=== PATIENT | female | born 1930 | race Caucasian/White ===

== ENCOUNTER 2017-03-28 15:00 | Inpatient (IN) | payer MEDICARE, BC ==
[~2017-03-28] VITALS: Ht 154.9 cm; Wt 46.5 kg
--- NOTE | ~2017-03-28 | DS ---
PATIENT'S NAME: STAR VAZQUEZ I [place] AGE: 86 Y [address] ROOM: [place] [address] LOCATION: GPCU ADMIT DATE: 03/28/2017 Discharge Summary DISCHARGE DATE: 03/31/2017 FAMILY PHYSICIAN: BHUPENDRA PACK MD ([facility]) ATTENDING PHYSICIAN: Dhiraj Perdomo [facility] COURSE: Mrs. Vazquez her a ground level fall at home. Two weeks prior to admission, had hip pain, was evaluated with CT scan and plain x-ray, that revealed no x-rays. Continued to have hip pain, presented to her local clinic after 2 weeks and x-ray demonstrated at that time a collapsed fracture of her right hip. She was transferred and admitted to [facility] for definitive treatment of her subcapital fracture of her right hip. After preoperative risk evaluation, she was taken to the operating room, right hemiarthroplasty was performed. In the postoperative period, she experienced moderate hypotension with systolics in the 50s and code blue protocol was performed despite no loss of pulse. She did have reversal of her hypotension with administration of Narcan and she did have some apnea during the code blue episode. She was transferred to PCU, started on dopamine for her hypotension and fluid support. She was typed and crossed and transfused 2 units packed red blood cells. She had some ST depression on leads V3, V4. All narcotics were withdrawn and her pain was managed for the remainder of the hospitalization with tramadol. Posttransfusion hemoglobin was 10.5. Postop day 2, hemoglobin drifted down to 8.7. Arrangements were made for her to be transferred to [facility] Bed. On postop day 3, she was transferred to the [place] [facility] with following instructions: Leave Mepilex dressing in place. May shower with that in place. Follow up with us in [place] in 6-12 days. Weight bear as tolerated. Continue prehospitalization medication regimen with the following additions: Lovenox 40 subcu q.24 hours with an end date of 04/08. Prescription was written for tramadol 50 mg p.o. q.6 hours p.r.n. pain, dispensed 40, no refills. Her comorbidities during her hospitalization included hypertension, gastroesophageal reflux disease, thyroid mass, and hypotension with apnea. BART CHOUDHARY FOR MD KAYCEE VERNON/elmer /[id number] d: 04/06/17 0202 t: 05/03/17 1058, DISCHARGE SUMMARY
--- NOTE | ~2017-03-28 | CON ---
PATIENT'S NAME: STAR VAZQUEZ I [facility] AGE: 86 Y [address] ROOM: [place] [address] [facility] ADMIT DATE: 03/28/2017 Consultation DISCHARGE DATE: FAMILY PHYSICIAN: PHYSICIAN, UNKNOWN ATTENDING PHYSICIAN: Dhiraj Perdomo REFERRING PHYSICIAN: Doug DUTTON ADDENDUM: IMPRESSION AND PLAN: In addition to the above impression and plan are, 1. Hyponatremia. We will merely hydrate her and observe her clinical response with normal saline. 2. Stop medications. Again, this was discussed with Dr. Dutton, who felt the patient was mild-to- moderate risk for a planned surgery due to the age, but no further workup was needed for anticipated surgery. She may proceed. ANNETTE MADRIGAL APRN, APRN FOR MD JERONIMO RO/elmer /[id number] d: t: 03/29/17 1004, CONSULTATION REPORT
--- NOTE | ~2017-03-28 | CON ---
PATIENT'S NAME: STAR VAZQUEZ I [facility] AGE: 86 Y [address] ROOM: [address] [place], [place] [address] LOCATION: G3N ADMIT DATE: 03/28/2017 Consultation DISCHARGE DATE: FAMILY PHYSICIAN: PHYSICIAN, UNKNOWN ATTENDING PHYSICIAN: Dhiraj Perdomo REFERRING PHYSICIAN: Doug DUTTON This is a consultation for Dr. Perdomo. REASON FOR CONSULTATION: Preoperative evaluation and medical management. CHIEF COMPLAINT: Right hip pain. HISTORY OF PRESENT ILLNESS: This is an 86-year-old female, who lives by herself at home. She is typically very independent and is using a four-wheeled walker and ambulating around her house. About a little over week ago on March 17, 2017, she suffered a fall in the toilet, that was ground level, resulting in right hip pain. She was taken to the emergency room where she was evaluated by the provider by x-ray and CT scan and did not show any fracture of the right hip. She also had a CT scan of her head and of her C-spine, which revealed no acute abnormalities there; however, was incidentally found a right thyroid mass, which recommendations were made for thyroid ultrasound and followup. She was sent home on Ultra and physical therapy. Over the course of the last week, she has progressive pain worsening to where she could hardly ambulate. She called her provider who upped her pain medicines and asked her to come back in for a visit today, in which a new pelvic x-ray revealed an impacted and overlapping right femoral neck fracture. Referrals were made to Orthopedics, and recommendations were made for surgical intervention and transferred to [facility]. We have asked to see the patient in regard to preoperative clearance and medical management. Currently, the patient is resting in bed, who shows some significant stress with spasming of her right hip with associated pain. She is alert and oriented x3. She does not complain of any lightheadedness or dizziness recent. 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 She does wear corrective vision for her right eye. She does have hearing aids that she wears all the time. She also has a top plate for her teeth, however, denies any sore throat or complications with her swallow. She denies any chest pains or palpitations or irregular heart rhythms. She does state that her doctor told her she has a heart murmur but has never had it worked up. She does have high blood pressure, which she tolerates her medicines without any complications. She denies any chronic lung disease. She has no shortness of PATIENT'S NAME: STAR VAZQUEZ I [facility] AGE: 86 Y [address] ROOM: [address] [address] LOCATION: [facility] ADMIT DATE: 03/28/2017 Consultation DISCHARGE DATE: FAMILY PHYSICIAN: PHYSICIAN, UNKNOWN ATTENDING PHYSICIAN: Dhiraj Perdomo breath or cough. She denies any nausea, vomiting, or diarrhea. She denies any melena. She denies any active urologic complaints. She has chronic urgency and sometimes incontinence. She denies any painfulness or burning upon urination currently. She does have a Higginbotham catheter in place. She does have complaints of the right groin into her hip area significant pain with spasms. She denies any numbness or tingling. She denies any recent weight loss or weight gain or hot or cold spells. REVIEW OF SYSTEMS: A 13-point review of systems was done and was deemed negative other than mentioned above in the HPI. ALLERGIES: NO KNOWN MEDICATION ALLERGIES. THE PATIENT STATES SHE HAS A HISTORY OF GLUTEN ALLERGY, RESPONSE UNKNOWN. HOME MEDICATIONS: 1. Tramadol 50 to 100 mg p.o. every 6 hours as needed for pain. 2. Lisinopril 20 mg p.o. every day. 3. Aspirin 81 mg p.o. every day. 4. Multivitamin 1 tablet p.o. every day with meals. 5. Acetaminophen 650 mg p.o. every 4 hours as needed for pain. 6. Maxitrol eye ointment one application ophthalmic every day as needed for eye irritation. PAST MEDICAL HISTORY: 1. Essential hypertension. 2. Reflux. 3. Questionable heart murmur. 4. Large right thyroid mass found by CT scan on 03/17 with recommendations for followup with thyroid ultrasound. PAST SURGICAL HISTORY: Hysterectomy. SOCIAL HISTORY: The patient lives alone at home independently. She denies any alcohol use. She is a nonsmoker. She denies any illicit drug use. She is retired. She has family that checks on her frequently that live nearby. PHYSICAL EXAMINATION: VITAL SIGNS: Reveal a temperature of 98.0 oral, pulse of 87, respiratory rate of 16, blood pressure 165/98, and SpO2 of 97% on room air. Her weight is 53.30 kg, her BMI is 22.2. GENERAL: This is an 86-year-old female, who looks and appears her PATIENT'S NAME: STAR VAZQUEZ I [facility] AGE: 86 Y [address] ROOM: [address] [address] LOCATION: [facility] ADMIT DATE: 03/28/2017 Consultation DISCHARGE DATE: FAMILY PHYSICIAN: PHYSICIAN, UNKNOWN ATTENDING PHYSICIAN: Dhiraj Perdomo stated age, who is grimacing with spasms in her right lower extremity. HEENT: Her head is normocephalic, atraumatic. Her eyes, EOMs intact. Nose is midline. Throat is non-red, no exudate. Dentition is good, top plate in place. NECK: Without any lymphadenopathy or thyromegaly. CHEST: Equal and symmetric expansion and is unlabored. Her respiratory rate is regular. Her lungs are clear throughout all luna without any wheeze. HEART: Regular rate and rhythm without any gallop. A silent systolic murmur grade 1 to 2 over 6 noted. No peripheral edema noted. ABDOMEN: Soft, nontender, nondistended. No organomegaly appreciated. Her right hip is externally rotated with point tenderness at the right pelvis. She has no clubbing or cyanosis in either extremities. NEUROLOGIC: Cranial nerves 2 through 12 intact, otherwise appears nonfocal. LABORATORY RESULTS: EKG shows normal sinus rhythm with what appears as right and possible left atrial enlargement. No acute ST changes noted. A CBC shows a white blood cell of 10.7, hemoglobin of 11.8, hematocrit of 34.7, platelet count 698. Chemistry panel shows a glucose of 102, BUN of 9, creatinine of 0.6, sodium 130, potassium 4.3, chloride 94, CO2 of 27, calcium 9.4, albumin 4.1, phosphorus 2.8, GFR greater than 60. INR is 0.92. A prealbumin level is 26. Urinalysis is pending. Chest x-ray shows no evidence of any acute cardiopulmonary disease. IMPRESSION AND PLAN: 1. Preoperative evaluation for a right femoral neck fracture. Her MET score is greater than 4 preoperatively. She has no acute process. The patient is at average risk for average procedure. Risks, benefits, and alternatives of the procedure to be discussed by the primary orthopedist and anesthesiologist. 2. Essential hypertension. To continue with her home medication lisinopril and observation of her blood pressures. 3. Right femoral neck fracture. To be managed by orthopedic primary attending, Dr. Perdomo. Plan for surgical intervention. Pain management as per ordered with intravenous morphine. We will give additional breakthrough Dilaudid for current active pain. We will carefully consider the addition of Valium for her spasms. 4. Gastroesophageal reflux disease without esophagitis. She is currently not on therapies, and we will continue close observation and placement of a proton pump inhibitor while plan for surgical intervention. 5. Incidental finding of a thyroid mass on CT scan. We would continue recommendations for followup as an outpatient. We will try to obtain most recent TSH level. She appears asymptomatic clinically. 6. Advanced age. The patient only is at high risk for postoperative PATIENT'S NAME: TAYLORSTAR QUINONES I [facility] AGE: 86 Y [address] ROOM: [place] [address] LOCATION: [facility] ADMIT DATE: 03/28/2017 Consultation DISCHARGE DATE: FAMILY PHYSICIAN: PHYSICIAN, UNKNOWN ATTENDING PHYSICIAN: Dhiraj Perdomo. Narcotics and medications should be narrowed accordingly. 7. Deep venous thrombosis prophylaxis. Pneumatic compression devices with holding of any anticoagulation in anticipation of surgery. The above line of management was discussed with the patient, who stated complete understanding. Further review with Dr. Dutton was completed. ANNETTE MADRIGAL APRN, FURNIT[employer] SAL[employer] CONSULTANT FOR MD JERONIMO RO/elmer /[id number] d: t: 03/28/17 2354, CONSULTATION REPORT
--- NOTE | ~2017-03-28 | HP ---
PATIENT'S NAME: [facility] AGE: 86 Y [address] ROOM: [place] [address] [facility] ADMIT DATE: 03/28/2017 History & Physical DISCHARGE DATE: 03/31/2017 FAMILY PHYSICIAN: BHUPENDRA PACK MD ([facility]) ATTENDING PHYSICIAN: Dhiraj Perdomo DATE OF SERVICE: CHIEF COMPLAINT AND HISTORY OF PRESENT ILLNESS: This is an 86-year-old female from [place]. She was previously living by herself at home and ambulatory with a walker. About a week ago, she fell and started complaining of hip pain. Radiographs and CT scan were negative for hip fracture. She presented today to the clinic in [place] with hip pain, and repeat radiographs showed displaced subcapital right femoral neck fracture. She was transferred to [facility] for further care and evaluation. ALLERGIES: NO KNOWN ALLERGIES. MEDICATIONS: 1. Tramadol. 2. Lisinopril. 3. Aspirin 81 mg. 4. Multivitamin. 5. Acetaminophen. 6. Maxitrol eye ointment. HABITS: The patient denies the use or abuse of tobacco and/or alcohol. OPERATIONS: Hysterectomy in the past. ILLNESSES: The patient has high blood pressure. FAMILY HISTORY: The patient's parents are no longer living. SOCIAL HISTORY: The patient does live at home alone in [place]. REVIEW OF SYSTEMS: HEENT: Unremarkable. CARDIOVASCULAR: The patient has hypertension and possible heart murmur. PATIENT'S NAME: [facility] AGE: 86 Y [address] ROOM: [place] [address] [facility] ADMIT DATE: 03/28/2017 History & Physical DISCHARGE DATE: 03/31/2017 FAMILY PHYSICIAN: BHUPENDRA PACK MD ([facility]) ATTENDING PHYSICIAN: Dhiraj Perdomo GASTROINTESTINAL: She has a history of reflux. ENDOCRINE: The patient had a right thyroid mass found by CT scan on 03/17 with recommendations for followup with thyroid ultrasound. PHYSICAL EXAMINATION: GENERAL: This is an elderly female who is alert and cooperative. VITAL SIGNS: Temperature 98, pulse 87, respirations 16, blood pressure 165/98, and BMI 22.2. HEENT: Head is normocephalic and atraumatic. CHEST: Clear to auscultation. HEART: Regular rate. ABDOMEN: Soft and nontender. NEUROLOGIC: Cranial nerves 2 through 12 intact grossly. EXTREMITIES: The patient has pain on any attempt to move her right hip. She dorsiflexes her ankle fully and actively without assist. Toes are pink and moist. DIAGNOSTIC DATA: Radiographs are reviewed and show a displaced subcapital fracture of the right hip. IMPRESSION: 1. Displaced subcapital fracture, right hip. 2. High blood pressure. 3. Incidental finding of a thyroid mass on CT scan. PLAN: The patient will be taken to the operating room for noncemented hemiarthroplasty of her right hip. The procedure, its risks, benefits, and alternatives were discussed with the patient who appears to understand and requests to proceed. MD ASHWIN VERNON/elmer /[id number] D: [id number] T: [id number] HISTORY & PHYSICAL
--- NOTE | ~2017-03-28 | OR ---
PATIENT'S NAME: STAR VAZQUEZ I [facility] AGE: 86 Y [address] ROOM: [place] [address] LOCATION: GPCU ADMIT DATE: 03/28/2017 OR/Procedure Report DISCHARGE DATE: FAMILY PHYSICIAN: PHYSICIAN, UNKNOWN ATTENDING PHYSICIAN: Dhiraj Perdomo SURGEON: Dhiraj Perdomo MD INSTRUCTOR WARPER: BART Olivares. DATE OF PROCEDURE: 03/28/2017 PREOPERATIVE DIAGNOSIS: Displaced subcapital fracture, right hip. POSTOPERATIVE DIAGNOSIS: Displaced subcapital fracture, right hip. PROCEDURE: Noncemented hemiarthroplasty, right hip, with DePuy Corail #12 standard offset stem with -3 neck adapter and 44 mm unipolar head. ANESTHESIA: Subarachnoid block. INDICATIONS: This is an 86-year-old female, who fell at home in [place] over a week ago. Radiographs and CT scan then failed to show any fracture. Today, radiograph showed a displaced subcapital fracture of her right hip. DESCRIPTION OF PROCEDURE: The patient was brought to the operating room where satisfactory spinal anesthesia had been established, and she was transferred to the operating table and placed on her left side with her right side up. The right lower extremity, hip, and hemipelvis were prepped and draped in an aseptic manner. A curvilinear posterior incision was made centered over the greater trochanter and carried down through the subcutaneous fat. The fascia eriberto and fascia of the gluteus gamaliel were divided in line with the skin incision. The short external rotators were exposed, put on stretch, cut close to the greater trochanter. The capsule was exposed and opened in a T-shaped incision. The posterior-superior sixth or so of the head was still attached to the neck, so the neck was cut a fingerbreadth proximal to the lesser trochanter. Then, the head was removed and measured. It would go through a 45 and also 44 mm hole. A 45 mm unipolar head was selected. The neck was lateralized with box cut chisel and the canal found. Broaching was begun at 8 and carried up to 12. A 12 standard offset stem was opened and impacted down the canal. A +0 neck adapter and a 45 mm head were impacted on the trunnion. The hip was reduced and it was very tight. It was, therefore, dislocated and the head removed. The -3 neck adapter was then placed on the trunnion and then 44 mm head impacted on the trunnion. The hip was reduced and it was much less tight. Her knees could be brought together. The wound was irrigated copiously with saline, and the capsule closed with interrupted #1 Vicryl. The piriformis was sutured to the greater trochanter with modified Nick stitch and #2 FiberWire. The fascia eriberto was closed with interrupted #1 Vicryl. The PATIENT'S NAME: STAR VAZQUEZ I [facility] AGE: 86 Y [address] ROOM: [place] [address] LOCATION: [facility]PCU ADMIT DATE: 03/28/2017 OR/Procedure Report DISCHARGE DATE: FAMILY PHYSICIAN: , MELY ATTENDING PHYSICIAN: Dhiraj Perdomo remainder of the closure was by BART Tirado, who closed the fascia of the gluteus gamaliel with running #1 Vicryl, the subcutaneous fat with running 2-0 Vicryl, and the skin with skin breana. Dressings were applied, and the patient sent to recovery area having tolerated the procedure well. MD ASHWIN VERNON/elmer /[id number] d: 03/29/17 0158 t: 03/31/17 1649, OPERATIVE SUMMARY
[2017-03-28] MEDS ORDERED: PRINIVIL (ZESTR20 MG PO (16:17)
[2017-03-28] MEDS ORDERED: ULTRAM50 MG PO (16:17)
[2017-03-28] MEDS ORDERED: ASPIRIN LO-DOSE81 MG PO (16:18)
[2017-03-28] MEDS ORDERED: CENTRUM SILVER1 TAB PO (16:18)
[2017-03-28] MEDS ORDERED: TYLENOL325 MG PO (16:18)
[2017-03-28] MEDS ORDERED: MAXITROL EYE O3.5 GM OPHTH (16:19)
[2017-03-28 17:13] LABS: BASOPHIL % 0.2 %; EOSINOPHIL % 0.1 %; HEMATOCRIT 34.7 % (30.0-46.0); HEMOGLOBIN 11.8 g/dL (10.0-15.0); IMMATURE GRANULOCYTE % 0.4 %; LYMPHOCYTE # 1.5 K/uL (0.8-4.0); LYMPHOCYTE % 13.7 %; MCV 91.1 fl (83.0-98.0); MONOCYTE % 9.7 %; MPV 8.5 fl (9.4-12.4); NEUTROPHIL # (ANC) 8.1 K/uL (1.8-7.8); NEUTROPHIL % 75.9 %; NRBC % 0 /100WBC (0-0.00); PLATELET COUNT 698 K/uL (150-450); RBC 3.81 M/uL (3.00-5.00); RDW-CV 13.1 % (11.9-14.6); WBC 10.7 K/uL (4.0-11.0)
[2017-03-28 17:21] LABS: INR - (THERAPEUTIC) 0.92 (0.92-1.07); PROTIME 9.7 SECONDS (9.8-11.4); PTT 28 SECONDS (25-32)
[2017-03-28 17:26] LABS: ALBUMIN 4.1 gm/dL (3.5-5.0); ANION GAP 13.3 (10.0-19.0); BLOOD UREA NITROGEN 9 mg/dL (6-24); CALCIUM 9.4 mg/dL (8.5-10.5); CHLORIDE 94 mMol/L (96-110); CO2 27 mMol/L (22-32); CREATININE 0.6 mg/dL (0.5-1.1); ESTIMATED GFR (MDRD EQUATION) > 60; PHOSPHORUS 2.8 mg/dL (2.5-4.9); POTASSIUM 4.3 mMol/L (3.7-5.1); SODIUM 130 mMol/L (135-145)
[2017-03-28 20:00] LABS: BILIRUBIN URINE NEGATIVE (NEGATIVE); BLOOD URINE NEGATIVE /UL (NEGATIVE); COLOR URINE STRAW (YELLOW); GLUCOSE URINE NEGATIVE (NEGATIVE); KETONE URINE NEGATIVE (NEGATIVE); LEUKOCYTES URINE NEGATIVE /UL (NEGATIVE); NITRITE URINE NEGATIVE (NEGATIVE); PROTEIN URINE NEGATIVE (NEGATIVE); SPEC GRAVITY URINE 1.005 (1.003-1.035); TURBIDITY URINE CLEAR (CLEAR); UROBILINOGEN URINE NORMAL (NORMAL)
[2017-03-29 01:24] LABS: BASOPHIL % 0.2 %; EOSINOPHIL % 0.1 %; IMMATURE GRANULOCYTE # 0.2 K/uL (0.0-0.3); IMMATURE GRANULOCYTE % 0.8 %; LYMPHOCYTE # 1.9 K/uL (0.8-4.0); LYMPHOCYTE % 9.6 %; MCV 94.9 fl (83.0-98.0); MONOCYTE # 1.6 K/uL (0.0-1.0); MPV 8.9 fl (9.4-12.4); NEUTROPHIL # (ANC) 15.9 K/uL (1.8-7.8); NEUTROPHIL % 81.3 %; NRBC % 0 /100WBC (0-0.00); RDW-CV 13.2 % (11.9-14.6)
[2017-03-29 01:25] LABS: HEMATOCRIT 20.5 % (30.0-46.0); HEMOGLOBIN 6.8 g/dL (10.0-15.0); MCH 31.5 pg (27.0-34.0); MCHC 33.2 gm/dL (32.0-36.5); PLATELET COUNT 460 K/uL (150-450); RBC 2.16 M/uL (3.00-5.00); WBC 19.5 K/uL (4.0-11.0)
[2017-03-29 01:32] LABS: INR - (THERAPEUTIC) 1.08 (0.92-1.07); PROTIME 11.3 SECONDS (9.8-11.4); PTT 28 SECONDS (25-32)
[2017-03-29 01:44] LABS: ALBUMIN 2.8 gm/dL (3.5-5.0); ALK PHOS 58 IU/L (33-138); ALT 22 IU/L (12-78); AST 25 IU/L (10-40); BLOOD UREA NITROGEN 8 mg/dL (6-24); CHLORIDE 105 mMol/L (96-110); CO2 21 mMol/L (22-32); CPK 361 IU/L (21-215); CREATININE 0.5 mg/dL (0.5-1.1); ESTIMATED GFR (MDRD EQUATION) > 60; POTASSIUM 3.8 mMol/L (3.7-5.1); TOTAL BILIRUBIN 0.5 mg/dL (0.0-1.5)
[2017-03-29 01:48] LABS: ANION GAP 14.8 (10.0-19.0); CALCIUM 7.3 mg/dL (8.5-10.5); SODIUM 137 mMol/L (135-145); TOTAL PROTEIN 4.7 g/dL (6.0-8.4)
[2017-03-29 06:46] LABS: HEMOGLOBIN 8.8 g/dL (10.0-15.0)
[2017-03-29 06:48] LABS: HEMATOCRIT 26.2 % (30.0-46.0)
[2017-03-29 07:04] LABS: ANION GAP 14.9 (10.0-19.0); BLOOD UREA NITROGEN 9 mg/dL (6-24); CALCIUM 7.8 mg/dL (8.5-10.5); CHLORIDE 103 mMol/L (96-110); CO2 19 mMol/L (22-32); CREATININE 0.5 mg/dL (0.5-1.1); ESTIMATED GFR (MDRD EQUATION) > 60; POTASSIUM 3.9 mMol/L (3.7-5.1); SODIUM 133 mMol/L (135-145)
[2017-03-29 09:07] LABS: HEMATOCRIT 29.6 % (30.0-46.0); MCH 30.8 pg (27.0-34.0); MCHC 34.1 gm/dL (32.0-36.5); MCV 90.2 fl (83.0-98.0); MPV 8.7 fl (9.4-12.4); PLATELET COUNT 382 K/uL (150-450); RDW-CV 14.4 % (11.9-14.6); WBC 14.2 K/uL (4.0-11.0)
[2017-03-29 09:08] LABS: RBC 3.28 M/uL (3.00-5.00)
[2017-03-29 09:09] LABS: HEMOGLOBIN 10.1 g/dL (10.0-15.0)
[2017-03-29 09:42] LABS: LYMPHOCYTE # 0.7 K/uL (0.8-4.0); LYMPHOCYTE % 5 %; MONOCYTE # 0.7 K/uL (0.0-1.0); SEGMENTED NEUTROPHIL # 12.5 K/uL (1.8-7.8); SEGMENTED NEUTROPHIL % 88 %
[2017-03-29 09:45] LABS: ABSOLUTE NEUTROPHIL CT (ANC) 12.8 K/uL (1.8-7.8); BANDED NEUTROPHIL # 0.3 K/uL (0.0-0.1); BANDED NEUTROPHILS % 2 %
[2017-03-30 05:52] LABS: BASOPHIL % 0.3 %; HEMATOCRIT 25.3 % (30.0-46.0); HEMOGLOBIN 8.7 g/dL (10.0-15.0); IMMATURE GRANULOCYTE % 0.3 %; LYMPHOCYTE # 0.6 K/uL (0.8-4.0); LYMPHOCYTE % 5.9 %; MCH 30.9 pg (27.0-34.0); MCHC 34.4 gm/dL (32.0-36.5); MCV 89.7 fl (83.0-98.0); MONOCYTE # 1.1 K/uL (0.0-1.0); MONOCYTE % 10.5 %; MPV 8.7 fl (9.4-12.4); NEUTROPHIL # (ANC) 8.8 K/uL (1.8-7.8); NRBC % 0 /100WBC (0-0.00); PLATELET COUNT 321 K/uL (150-450); RBC 2.82 M/uL (3.00-5.00); RDW-CV 14.9 % (11.9-14.6); WBC 10.6 K/uL (4.0-11.0)
[2017-03-30 06:07] LABS: ANION GAP 11.6 (10.0-19.0); BLOOD UREA NITROGEN 9 mg/dL (6-24); CALCIUM 7.7 mg/dL (8.5-10.5); CHLORIDE 99 mMol/L (96-110); CO2 23 mMol/L (22-32); CREATININE 0.4 mg/dL (0.5-1.1); ESTIMATED GFR (MDRD EQUATION) > 60; MAGNESIUM 1.9 mg/dL (1.8-2.6); POTASSIUM 3.6 mMol/L (3.7-5.1); SODIUM 130 mMol/L (135-145)
[2017-03-31 05:14] LABS: HEMATOCRIT 25.4 % (30.0-46.0); HEMOGLOBIN 8.7 g/dL (10.0-15.0)
[2017-03-31 05:28] LABS: ANION GAP 14.3 (10.0-19.0); BLOOD UREA NITROGEN 10 mg/dL (6-24); CALCIUM 7.8 mg/dL (8.5-10.5); CHLORIDE 95 mMol/L (96-110); CO2 23 mMol/L (22-32); CREATININE 0.4 mg/dL (0.5-1.1); ESTIMATED GFR (MDRD EQUATION) > 60; POTASSIUM 4.3 mMol/L (3.7-5.1); SODIUM 128 mMol/L (135-145)
== END 2017-03-31 11:20 | disposition swing bed (61) | DRG 469 ==
LOC: G3N 15:36 → GPCU 15:36
PROVIDERS: Hospitalist; Internal Medicine; ADMIT Orthopaedic Surgery
PROC: 0SRR0JA Replacement of Right Hip Joint, Femoral Surface with Synthetic Substitute, Uncemented, Open Approach (ICD-10-PCS; principal; 2017-03-28)
PROC: 30233N1 Transfusion of Nonautologous Red Blood Cells into Peripheral Vein, Percutaneous Approach (ICD-10-PCS; 2017-03-29)
DX: S72.011A Unspecified intracapsular fracture of right femur, initial encounter for closed fracture (principal); G93.40 Encephalopathy, unspecified; D62 Acute posthemorrhagic anemia; E87.1 Hypo-osmolality and hyponatremia; W18.30XA Fall on same level, unspecified, initial encounter; I95.2 Hypotension due to drugs; E07.9 Disorder of thyroid, unspecified; I10 Essential (primary) hypertension; K21.9 Gastro-esophageal reflux disease without esophagitis; T50.905A Adverse effect of unspecified drugs, medicaments and biological substances, initial encounter; Y92.239 Unspecified place in hospital as the place of occurrence of the external cause
CPT/HCPCS: C1776; J0690; J1170; J1265; J1650; J2270; J2310; J7030; J7050; P9016; P9045